=== PATIENT | male | born 1970 | race Caucasian/White ===

== ENCOUNTER 2019-09-09 12:04 | Emergency (ER) | payer OTHER ==
[~2019-09-09] VITALS: Ht 167.6 cm; Wt 93.0 kg
[2019-09-09] MEDS ORDERED: VENL25 (12:16)
[2019-09-09] MEDS ORDERED: Flonase 0.05% N16 GM (12:16)
[2019-09-09] MEDS ORDERED: ERYT250 (12:16)
[2019-09-09] MEDS ORDERED: Polytrim Eye Dr10 ML RIGHTEYE (13:59)
== END 2019-09-09 14:08 | disposition home or self-care (01) ==
LOC: ER 12:04
DX: S05.01XA Injury of conjunctiva and corneal abrasion without foreign body, right eye, initial encounter (principal); F17.220 Nicotine dependence, chewing tobacco, uncomplicated; Z79.899 Other long term (current) drug therapy; X58.XXXA Exposure to other specified factors, initial encounter
CPT/HCPCS: 70480; 99283-25

== ENCOUNTER 2020-03-08 05:59 | Day surgery (SDC) | payer OTHER ==
[~2020-03-08] VITALS: Ht 167.6 cm; Wt 98.0 kg
[~2020-03-08 05:59] MED LIST: ERYT250; Flonase 0.05% N16 GM; KEFLEX500 MG PO; LIDOCAINE5 GM; Polytrim Eye Dr10 ML RIGHTEYE; VENL25 PO; VITAMIN D31000 UNI1 PO
[2020-03-08] MEDS ORDERED: METO25ER PO (06:39)
[2020-03-08] MEDS ORDERED: ATOR40TA PO (06:39)
[2020-03-08] MEDS ORDERED: Aspir 8181 MG PO (06:39)
--- NOTE | 2020-03-08 10:08 | NUR ---
1000 PATIENT RELAZING/SLEEPING IN RECLINER CHAIR. BEGAN RELEASING AIR FROM THE TR BAND. 2 ML AT A TIME. 12 IN THE BAND TO START. TOLERATED WELL. NO BLEEDING NOTED.
--- NOTE | 2020-03-08 10:18 | NUR ---
1018 ALL AIR REMOVED FROM THE TR BAND AND NO BLEEDING NOTED. VVS.
== END 2020-03-08 11:15 | disposition home or self-care (01) ==
LOC: MHTC 05:59
PROC: 4A023N7 Measurement of Cardiac Sampling and Pressure, Left Heart, Percutaneous Approach (ICD-10-PCS; principal; 2020-03-08)
PROC: B201YZZ Plain Radiography of Multiple Coronary Arteries using Other Contrast (ICD-10-PCS; principal; 2020-03-08)
DX: I47.2 Ventricular tachycardia (principal); I49.3 Ventricular premature depolarization; I10 Essential (primary) hypertension; E78.5 Hyperlipidemia, unspecified; I87.2 Venous insufficiency (chronic) (peripheral); E66.9 Obesity, unspecified; F17.220 Nicotine dependence, chewing tobacco, uncomplicated; Z79.899 Other long term (current) drug therapy; Z68.34 Body mass index [BMI] 34.0-34.9, adult
CPT/HCPCS: 76937; 93005; 93010; 93454; 99152; 99153; C1769; C1894; J1644; J2250; J3010; J7030; Q9967

== ENCOUNTER 2022-09-22 17:55 | Emergency (ER) | payer OTHER ==
[~2022-09-22] VITALS: Ht 167.6 cm; Wt 111.1 kg
[~2022-09-22 17:55] MED LIST changes: +ATOR40TA PO; +Aspir 8181 MG PO; +METO25ER PO
[2022-09-22 19:06] LABS: BASOPHILS ABSOLUTE AUTO 0.07 K/mm3 (0.00-0.23); BASOPHILS PERCENT AUTO 1 % (0-2); EOSINOPHILS ABSOLUTE AUTO 0.13 K/mm3 (0.00-0.68); EOSINOPHILS PERCENT AUTO 2 % (0-6); Hematocrit 39.6 % (37.0-53.0); Hemoglobin 13.7 g/dL (13.5-17.5); IMMATURE GRAN ABSOLUTE AUTO 0.02 K/mm3 (0.00-0.10); IMMATURE GRAN PERCENT AUTO 0 % (0-1); LYMPHOCYTES ABSOLUTE AUTO 1.02 K/mm3 (0.84-5.20); LYMPHOCYTES PERCENT AUTO 15 % (21-46); MONOCYTES ABSOLUTE AUTO 0.78 K/mm3 (0.16-1.47); MONOCYTES PERCENT AUTO 11 % (4-13); Mean Corpuscular HGB 29.3 pg (26.0-34.0); Mean Corpuscular HGB Conc 34.6 g/dL (31.5-36.5); Mean Corpuscular Volume 85 fL (80-100); Mean Platelet Volume 9.1 fL (9.1-12.4); NEUTROPHILS ABSOLUTE AUTO 4.82 K/mm3 (1.96-9.15); NEUTROPHILS PERCENT AUTO 71 % (41-73); Platelet Count 208 K/mm3 (150-400); RDW Coefficient Variation 12.4 % (11.7-14.2); Red Blood Cell Count 4.68 M/mm3 (4.30-5.90); White Blood Cell Count 6.84 K/mm3 (4.00-11.30)
[2022-09-22 19:25] LABS: Albumin, Blood 3.6 g/dL (3.4-5.0); Bilirubin, Total 0.5 mg/dL (0.1-1.0); Bun/Creatinine Ratio 10.6 (12.0-20.0); Calcium, Blood 8.8 mg/dL (8.5-10.1); Creatinine, Blood 1.04 mg/dL (0.60-1.20); Globulin, Blood 3.5 g/dL (2.2-4.0); Potassium, Blood 3.9 mmol/L (3.5-5.5); Total Protein, Blood 7.1 g/dL (6.4-8.2)
[2022-09-22 19:45] LABS: Influenza A, PCR NEGATIVE (NEGATIVE); Influenza B, PCR NEGATIVE (NEGATIVE); Resp Syncytial Virus, PCR NEGATIVE (NEGATIVE)
[2022-09-22 20:04] LABS: SARS-Cov-2 (COVID-19) PCR, MMC POSITIVE (NEGATIVE)
== END 2022-09-22 22:17 | disposition home or self-care (01) ==
LOC: ER 17:55
PROVIDERS: Emergency Medicine
DX: U07.1 COVID-19 (principal); F17.220 Nicotine dependence, chewing tobacco, uncomplicated; Z79.899 Other long term (current) drug therapy; Z79.82 Long term (current) use of aspirin
CPT/HCPCS: 0241U; 71045; 80053; 84484; 85025; 93005; 93010; A9270; J1885